=== PATIENT | male | born 1965 ===

== ENCOUNTER 2022-12-15 10:28 | Outpatient (RCR) | payer OTHER, SELFPAY ==
[2022-12-15 11:47] VITALS: BMI 28.0
[2022-12-15 14:09] VITALS: BMI 28.0
== END 2023-03-01 08:49 | disposition home or self-care (01) ==
LOC: ANHDMC 10:28
PROVIDERS: Visit Provider Family Medicine
DX: E11.65 Type 2 diabetes mellitus with hyperglycemia (principal); E78.2 Mixed hyperlipidemia; Z71.3 Dietary counseling and surveillance; Z71.89 Other specified counseling
CPT/HCPCS: 97802; G0108